=== PATIENT | female | born 1955 | race Caucasian/White ===

== ENCOUNTER 2022-08-28 10:19 | Inpatient (IN) | payer MEDICARE, SELFPAY ==
[2022-08-28] VITALS (29 sets, daily range): BP systolic 106–148; BP diastolic 69–93; PULSE 67–93; RESP 16–20; TEMP 36.6–36.8; O2SAT 89–100; BMI 23.4; BMI 20.9
--- NOTE | 2022-08-28 11:05 | CRLHL7_ITS ---
For Patients: As a result of the Century Cures Act, medical imaging exams and procedure reports are released immediately into your electronic medical record. You may view this report before your referring provider. If you have questions, please contact your health care provider. INDICATION: vomiting, abd pain since New Years Kaitlin TECHNIQUE: CT abdomen and pelvis with 58cc Isovue 370 IV contrast. COMPARISON: None. FINDINGS: The liver is normal in size, shape and attenuation. Gallbladder and biliary tree are normal. The spleen, adrenal glands and pancreas are within normal limits. Kidneys enhance symmetrically. Hyperdense lesions are too small to characterize but likely represent cysts. No hydronephrosis. Mild bladder wall thickening may relate to degree of decompression but could be seen with cystitis. Severely dilated loops of small bowel with wall thickening throughout the upper and left ruben abdomen. Transition point suspected within the right lower abdomen on series 2, image 201. There is fluid and inflammation at the root of the mesentery and moderate volume ascites within the lower abdomen/pelvis. Few areas of questionable small bowel pneumatosis (for example series 4, image 33 and 34). No evidence of portal venous gas. No evidence of free air. Suspect prior hysterectomy. The lower chest is unremarkable. IMPRESSION: Severely dilated loops of small bowel with wall thickening and suspected transition point within the right lower abdomen/pelvis. There is moderate volume ascites and inflammation throughout the mesentery. Findings are highly concerning for small bowel obstruction. Few areas of questionable small bowel pneumatosis (for example series 4, image 33 and 34). Mild bladder wall thickening may relate to degree of decompression but could be seen with cystitis. Findings discussed with Dr. Cervantes at 1:30 p.m. 08/28/2022. Please note that all CT scans at this facility use dose modulation, iterative reconstruction, and/or weight-based dosing when appropriate to reduce radiation dose to as low as reasonably achievable. Dictated by Michelet Bates MD @ 08/28/2022 1:34:03 PM (Electronically Signed)
--- NOTE | 2022-08-28 11:07 | ED_ITS ---
HPI - General Adult General Chief complaint: Nausea/Vomiting Stated complaint: Vomiting, dehydration Time Seen by Provider: 08/28/22 10:59 History of Present Illness HPI narrative: This 67-year-old female comes in reporting abdominal pain with nausea and vomiting for the past 4 5 days. She denies having any fever. She states that there is a constant pain in her abdomen but it gets worse at times. She has not had a prior surgery to her abdomen but did have a hysterectomy. She has not been able to eat much and has not taken any food or drink today. She does arrive with normal vital signs. Prior to this she was in good health. Related Data Home Medications Medication Instructions Recorded Confirmed albuterol sulfate 90 mcg/actuation 2 puff inhalation Q6H PRN 08/28/22 08/28/22 aerosol inhaler anastrozole 1 mg tablet 1 mg PO DAILY 08/28/22 08/28/22 budesonide-formoterol HFA 160 2 puff inhalation Q12H 08/28/22 08/28/22 mcg-4.5 mcg/actuation aerosol inhaler (Symbicort) carvedilol 6.25 mg tablet 6.25 mg PO Q12H 08/28/22 08/28/22 citalopram 10 mg tablet 10 mg PO DAILY 08/28/22 08/28/22 doxycycline hyclate 100 mg tablet mg 08/28/22 levothyroxine 25 mcg tablet 25 mcg PO DAILY 08/28/22 08/28/22 lorazepam 1 mg tablet 1 mg PO Q8H PRN 08/28/22 08/28/22 losartan 50 mg tablet 50 mg PO BID 08/28/22 08/28/22 nystatin 100,000 unit/mL oral 5 ml PO Q6H 08/28/22 08/28/22 suspension prednisone 20 mg tablet 60 mg PO DAILY 08/28/22 08/28/22 trazodone 150 mg tablet 200 mg PO DAILY 08/28/22 08/28/22 Allergies Allergy/AdvReac Type Severity Reaction Status Date / Time codeine Allergy Mild ithcy Verified 08/28/22 10:50 erythromycin Allergy Mild hard on Uncoded 08/28/22 10:50 stomach Review of Systems Status of ROS: Reports: 10 or more systems reviewed and unremarkable except as noted in History and below Narrative: Constitutional: No fevers, no weight gain or loss. Eyes: No discharge. No vision changes. HENT: No congestion, no sore throat, no ear pain. Cardiovascular: No chest pain, no palpitations. Respiratory: No shortness of breath, no wheezes, no cough. Gastrointestinal: Abdominal pain with nausea and vomiting. Genitourinary: No dysuria, no hematuria. Musculoskeletal: Normal range of motion. Skin: No rashes, no pruritis. Neurological: No dizziness, weakness, sensory change, speech change. Endo/Heme/Allergies: No bruising or bleeding. No polydipsia. Pysch: no suicidality, no anxiety, no insomnia. All other systems reviewed and are negative. PFSH PFS Social History Smoking Status: Current some day smoker What tobacco products do you use: cigarettes Smoking packs per day: 0.1 Smoking cigarettes per day: 2.0 Do you use any of these nicotine containing products: None Second hand tobacco smoke exposure: No How often do you have a drink containing alcohol: monthly or less AUDIT-C Alcohol total score: 1 Non-prescribed substance use: denies use service: No Exam Narrative: Exam Narrative: Constitutional: Well-developed, well-nourished, no acute distress. HEENT: Normocephalic, atraumatic. Neck: Normal range of motion. Nontender. Supple. Heart: Regular. No murmurs. Normal rate. Intact distal pulses. Lungs: Clear to auscultation. No chest discomfort. No wheezes, rhonchi, or rales. Abdomen: Decreased bowel sounds. Diffuse tenderness. Distinct rebound tenderness. Genitalia: Deferred. Back: No midline tenderness. Normal range of motion. Extremities: Normal range of motion. No injury. Skin: Intact. No rash. Warm. No erythema or pallor. Neurologic: No altered sensation. No weakness. Alert and oriented. Psychiatric: No suicidality. No anxiety or depression. No insomnia. Nursing notes and vitals signs are reviewed. Const: Vital Signs, click to edit/add: Vital Signs - 24 hr 08/28/22 10:43 08/28/22 11:32 08/28/22 11:33 Temperature 97.8 F Pulse Rate 78 Pulse Rate [Right Pulse Oximeter] 93 Respiratory Rate 20 Blood Pressure 108/77 Blood Pressure [Ri ght Upper Arm] 113/85 Pulse Oximetry 96 92 Oxygen Delivery Me thod Room Air Oxygen Flow Rate 08/28/22 11:34 08/28/22 11:45 08/28/22 12:00 Temperature Pulse Rate 78 70 76 Pulse Rate [Right Pulse Oximeter] Respiratory Rate Blood Pressure Blood Pressure [Ri ght Upper Arm] Pulse Oximetry 97 98 99 Oxygen Delivery Me thod Nasal Cannula Oxygen Flow Rate 2 08/28/22 12:02 08/28/22 12:30 08/28/22 12:32 Temperature Pulse Rate 67 79 77 Pulse Rate [Right Pulse Oximeter] Respiratory Rate Blood Pressure 128/71 148/82 H Blood Pressure [Ri ght Upper Arm] Pulse Oximetry 99 97 100 Oxygen Delivery Me thod Oxygen Flow Rate 08/28/22 12:33 08/28/22 12:45 08/28/22 13:00 Temperature Pulse Rate 75 77 72 Pulse Rate [Right Pulse Oximeter] Respiratory Rate Blood Pressure Blood Pressure [Ri ght Upper Arm] Pulse Oximetry 100 95 95 Oxygen Delivery Me thod Oxygen Flow Rate 08/28/22 13:02 08/28/22 13:15 08/28/22 13:30 Temperature Pulse Rate 74 80 71 Pulse Rate [Right Pulse Oximeter] Respiratory Rate Blood Pressure 115/76 Blood Pressure [Ri ght Upper Arm] Pulse Oximetry 94 96 95 Oxygen Delivery Me thod Oxygen Flow Rate 08/28/22 13:32 08/28/22 13:45 Temperature Pulse Rate 71 76 Pulse Rate [Right Pulse Oximeter] Respiratory Rate Blood Pressure 108/76 Blood Pressure [Ri ght Upper Arm] Pulse Oximetry 95 89 Oxygen Delivery Me thod Oxygen Flow Rate Course Vital Signs Vital signs: Initial Vital Signs Temperature 97.8 F 08/28/22 10:43 Temperature Source Temporal Artery Scan 08/28/22 10:43 Pulse Rate 93 08/28/22 10:43 Respiratory Rate 20 08/28/22 10:43 Blood Pressure 113/85 08/28/22 10:43 Blood Pressure Mean 94 08/28/22 10:43 Blood Pressure Position Sitting 08/28/22 10:43 Pulse Oximetry 96 08/28/22 10:43 Oxygen Delivery Method 08/28/22 10:43 Vital Signs Temperature 97.8 F 08/28/22 10:43 Pulse Rate 93 08/28/22 10:43 Respiratory Rate 20 08/28/22 10:43 Blood Pressure 113/85 08/28/22 10:43 Pulse Oximetry 96 08/28/22 10:43 Oxygen Delivery Method 08/28/22 10:43 Temperature 97.8 F 08/28/22 10:43 Pulse Rate 76 08/28/22 13:45 Respiratory Rate 20 08/28/22 10:43 Blood Pressure 108/76 08/28/22 13:32 Pulse Oximetry 89 08/28/22 13:45 Oxygen Delivery Method 08/28/22 11:34 Oxygen Flow Rate 2 08/28/22 11:34 Medical Decision Making MDM Narrative Medical decision making narrative: This patient comes in with persistent vomiting and abdominal pain over the past 4 5 days. She had an IV placed where she received a L of normal saline, Zofran 4 mg, and Dilaudid 0.2 mg. She received another similar dose of Dilaudid a bit later. CT imaging of the abdomen and pelvis with contrast shows evidence of a small-bowel obstruction. There are no other pertinent findings and lab results are all the normal range. The patient did have a vaginal hysterectomy many years ago but has not had no other abdominal surgery. I did speak with the hospitalist incident response engineer, Dr. Ford who agrees to her admission. IA spoke also with Dr. Hilario Ford in surgery regarding this patient and left a message with the surgeon on-call, Dr. Morton with information regarding this admission. The CT imaging and presentation of the patient a is not suspicious for any complicating factors. Lab Data Labs: Lab Results 08/28/22 08/28/22 Range/Units 11:15 11:15 WBC 6.08 (4.50-11.00) K/uL RBC 4.81 (4.00-5.20) m/uL Hgb 15.2 (12.0-16.0) gm/dL Hct 44.2 (33.0-51.0) % MCV 92 (80-100) fL MCH 32 (26-34) pg MCHC 34 (32-36) gm/dL RDW Coeff of Minna 12.2 (11.5-15.5) % Plt Count 190 (140-440) K/uL Neut % (Auto) 66.8 (42.0-72.0) % Lymph % (Auto) 20.6 (20-44) % [place] % (Auto) 10.7 (0.0-11.0) % Eos % (Auto) 1.2 (0.0-7.0) % Baso % (Auto) 0.5 (0.0-3.0) % Neut # (Auto) 4.07 (1.7-7.0) K/uL Lymph # (Auto) 1.25 (0.90-2.90) K/uL [place] # (Auto) 0.70 (0.00-0.90) K/UL Eos # (Auto) 0.07 (0.00-0.50) K/uL Baso # (Auto) 0.03 (0.00-0.30) K/uL Sodium 135 (135-149) mmol/L Potassium 3.8 (3.6-5.1) mmol/L Chloride 100 (96-114) mmol/L Carbon Dioxide 27 (20-32) mmol/L BUN 15 (7-30) mg/dL Creatinine 0.9 (0.5-1.5) mg/dL Estimated Creat Clear 39.75 Estimated GFR 71 ml/min Glucose 114 (60-115) mg/dL Calcium 8.5 (8.4-10.6) mg/dL Total Bilirubin 2.8 H (0.1-1.5) mg/dL Direct Bilirubin 0.3 (0.0-0.5) mg/dL AST 45 H (12-35) U/L ALT 38 H (4-35) U/L Alkaline Phosphatase 40 (40-150) U/L Total Protein 6.4 (6.0-8.3) g/dL Albumin 3.9 (3.3-5.0) g/dL Lipase 17 L (23-300) U/L Imaging Data CT scan - abdomen: Radiologist's impression: IMPRESSION: Severely dilated loops of small bowel with wall thickening and suspected transition point within the right lower abdomen/pelvis. There is moderate volume ascites and inflammation throughout the mesentery. Findings are highly concerning for small bowel obstruction. Few areas of questionable small bowel pneumatosis (for example series 4, image 33 and 34). Mild bladder wall thickening may relate to degree of decompression but could be seen with cystitis. Discharge Plan Discharge Clinical Impression: Small bowel obstruction Patient Disposition: Admitted As Inpatient Condition: Unchanged Prescriptions: No Action albuterol sulfate 90 mcg/actuation HFA aerosol inhaler 2 puff INHALATION Q6H PRN Label Comments: INHALE TWO PUFFS BY MOUTH EVERY FOUR HOURS NEEDED FOR WHEEZING anastrozole 1 mg tablet 1 mg PO DAILY Label Comments: TAKE ONE TABLET BY MOUTH ONE TIME DAILY budesonide-formoterol [Symbicort] 160-4.5 mcg/actuation HFA aerosol inhaler 2 puff INHALATION Q12H Label Comments: INHALE TWO PUFFS BY MOUTH TWICE DAILY carvedilol 6.25 mg tablet 6.25 mg PO Q12H Label Comments: TAKE ONE TABLET BY MOUTH TWICE A DAY WITH MEALS citalopram 10 mg tablet 10 mg PO DAILY Label Comments: TAKE ONE TABLET BY MOUTH EVERY DAY IN THE MORNING. levothyroxine 25 mcg tablet 25 mcg PO DAILY Label Comments: TAKE ONE TABLET BY MOUTH ONE TIME DAILY lorazepam 1 mg tablet 1 mg PO Q8H PRN Label Comments: Take 1 Tablet (1 mg) by mouth 3 times daily if needed for Anxiety. doxycycline hyclate 100 mg tablet Label Comments: TAKE ONE TABLET BY MOUTH TWICE DAILY FOR 5 DAYS losartan 50 mg tablet 50 mg PO BID Label Comments: TAKE ONE TABLET BY MOUTH TWICE DAILY nystatin 100,000 unit/mL suspension 5 ml PO Q6H Label Comments: Swish and spit 5 mL by mouth four times daily For thrush prednisone 20 mg tablet 60 mg PO DAILY Label Comments: Take 3 Tablets by mouth once daily with a meal for 4 days, THEN 2 Tablets for 4 days, THEN 1 Tablet daily for 4 days. trazodone 150 mg tablet 200 mg PO DAILY Label Comments: Take 1.5 Tablets by mouth once daily at bedtime. Follow Up/Referrals: Suzy Stewart [Primary Care Provider] -
[2022-08-28 11:26] LABS: Basophils Absolute Auto 0.03 K/uL (0.00-0.30); Basophils Percent Auto 0.5 % (0.0-3.0); Eosinophils Absolute Auto 0.07 K/uL (0.00-0.50); Eosinophils Percent Auto 1.2 % (0.0-7.0); Hematocrit 44.2 % (33.0-51.0); Hemoglobin* 15.2 gm/dL (12.0-16.0); Immature Granulocytes Abs Auto 0.01 K/uL (0.00-0.30); Immature Granulocytes Pct Auto 0.2 %; Lymphocytes Absolute Auto 1.25 K/uL (0.90-2.90); Lymphocytes Percent Auto 20.6 % (20-44); Mean Corpuscular HGB Conc 34 gm/dL (32-36); Mean Corpuscular Hemoglobin 32 pg (26-34); Mean Corpuscular Volume 92 fL (80-100); Monocytes Percent Auto 10.7 % (0.0-11.0); Neutrophils Absolute Auto 4.07 K/uL (1.7-7.0); Neutrophils Percent Auto 66.8 % (42.0-72.0); Platelet Count* 190 K/uL (140-440); RDW Coefficient of Variation % 12.2 % (11.5-15.5); Red Blood Count 4.81 m/uL (4.00-5.20); White Blood Count* 6.08 K/uL (4.50-11.00)
[2022-08-28] MEDS: 0.9 % SODIUM CHLORIDE 1000 ml 1,000 ML IV (11:27)
[2022-08-28] MEDS: ONDANSETRON 2 MG/ML inj 4 MG IVP (11:27)
[2022-08-28] MEDS: HYDROmorphone 0.5 mg/0.5 ml inj 0.2 MG IVP ×2 (11:27→14:03)
[2022-08-28 11:35] LABS: Slide Review Reflex No
[2022-08-28 11:41] LABS: Albumin* 3.9 g/dL (3.3-5.0); Chloride* 100 mmol/L (96-114)
[2022-08-28 11:42] LABS: Potassium* 3.8 mmol/L (3.6-5.1); Sodium* 135 mmol/L (135-149)
[2022-08-28 11:44] LABS: Aspartate Amino Transferase* 45 U/L (12-35); Bilirubin Direct* 0.3 mg/dL (0.0-0.5); Bilirubin Total* 2.8 mg/dL (0.1-1.5); Blood Urea Nitrogen* 15 mg/dL (7-30); Carbon Dioxide* 27 mmol/L (20-32); Creatinine* 0.9 mg/dL (0.5-1.5); Est. Creatinine Clearance* 39.75; Estimated Glomerular Filt Rate 71 ml/min; Total Protein* 6.4 g/dL (6.0-8.3)
[2022-08-28 11:45] LABS: Alanine Aminotransferase* 38 U/L (4-35); Alkaline Phosphatase* 40 U/L (40-150); Calcium* 8.5 mg/dL (8.4-10.6); Glucose* 114 mg/dL (60-115); Lipase* 17 U/L (23-300)
--- NOTE | 2022-08-28 12:33 | ED.NURSE ---
Pt to and back from radiology
[2022-08-28 14:40] LABS: SARS PCR* Negative SARS-CoV-2 (Negative)
--- NOTE | 2022-08-28 15:05 | CRLHL7_ITS ---
For Patients: As a result of the Century Cures Act, medical imaging exams and procedure reports are released immediately into your electronic medical record. You may view this report before your referring provider. If you have questions, please contact your health care provider. INDICATION: Cough TECHNIQUE: Two view chest. FINDINGS: The lungs are clear. The heart, mediastinum and pulmonary vessels are of normal size. There is no evidence of pleural disease. Clips over the left chest. Mastectomy change axillary clips. IMPRESSION: Negative chest. Dictated by Elsa Wan MD @ 08/28/2022 5:50:46 PM (Electronically Signed)
--- NOTE | 2022-08-28 15:07 | P.GSCN_ITS ---
History of Present Illness Consult details Date Seen: 08/28/22 Consult date: 08/28/22 Narrative: 67-year-old female presented to emergency room with abdominal pain and I was asked by Dr. San to see her in consultation. Patient states that she developed abdominal pain on . She had multiple episodes of vomiting. Her vomiting continued on . Her abdominal pain also continued and patient thought that her pain was mostly due to coughing. She occasionally passes gas but her last bowel movement was 5 days ago. Patient states that her abdominal pain is described as aching and worse with coughing. She is not sure what makes the pain better or worse. I reviewed patient's labs and CT. Patient's laboratory values showed elevated indirect bilirubin and minimally elevated AST and ALT. Her albumin was normal. Her WBC was normal. An abdominal CT was obtained that showed moderate amount of ascites with dilated loops of small intestine. The wall of the small intestine was thickened and there were 2 images described by Radiology of questionable pneumatosis. There is no evidence of free air. Patient has had chronic cough and was treated with antibiotics in the member. She was recently seen again and the antibiotic course was prescribed but she was not able to start her antibiotics due to vomiting. 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 Smoking Status: Current some day smoker What tobacco products do you use: cigarettes Smoking packs per day: 0.1 Smoking cigarettes per day: 2.0 Do you use any of these nicotine containing products: None Second hand tobacco smoke exposure: No How often do you have a drink containing alcohol: monthly or less AUDIT-C Alcohol total score: 1 Non-prescribed substance use: denies use service: No Meds Home Medications and Allergies Home Medications Medication Instructions Recorded Confirmed Type albuterol sulfate 90 mcg/actuation 2 puff inhalation Q4H PRN 08/28/22 08/28/22 History aerosol inhaler anastrozole 1 mg tablet 1 mg PO DAILY 08/28/22 08/28/22 History aspirin 81 mg tablet,delayed 81 mg PO DAILY 08/28/22 08/28/22 History release (Adult Aspirin Regimen) budesonide-formoterol HFA 160 2 puff inhalation BID 08/28/22 08/28/22 History mcg-4.5 mcg/actuation aerosol inhaler (Symbicort) calcium carbonate 600 mg-vitamin 1 cap PO BID 08/28/22 08/28/22 History D3 5 mcg (200 unit) capsule (Calcium 600 + D(3)) carvedilol 6.25 mg tablet 6.25 mg PO BID 08/28/22 08/28/22 History doxycycline hyclate 100 mg tablet 100 mg PO BID 08/28/22 08/28/22 History ipratropium 0.5 mg-albuterol 3 mg 3 ml inhalation Q6H PRN 08/28/22 08/28/22 History (2.5 mg base)/3 mL nebulization soln levothyroxine 25 mcg tablet 25 mcg PO DAILY 08/28/22 08/28/22 History lorazepam 1 mg tablet 1 mg PO TID PRN 08/28/22 08/28/22 History losartan 50 mg tablet 50 mg PO BID 08/28/22 08/28/22 History nystatin 100,000 unit/mL oral 5 ml PO QID 08/28/22 08/28/22 History suspension omeprazole 20 mg capsule,delayed 20 mg PO DAILY 08/28/22 08/28/22 History release oxycodone-acetaminophen 5 mg-325 1 tab PO Q4H PRN 08/28/22 08/28/22 History mg tablet prednisone 20 mg tablet 60 mg PO DAILY 08/28/22 08/28/22 History trazodone 150 mg tablet 150 mg PO HS PRN 08/28/22 08/28/22 History Allergies Allergy/AdvReac Type Severity Reaction Status Date / Time codeine Allergy Mild ithcy Verified 08/28/22 10:50 erythromycin base Allergy Mild Gastrointestinal Verified 08/28/22 14:51 Upset Exam Narrative: Exam Narrative: General appearance: Alert, cooperative, and in no distress Pulmonary: Chest symmetric, Mild expiratory wheezing on the left. Cardiovascular Heart: Regular rate and rhythm, S1, S2, no murmurs/rubs/gallops Gastrointestinal Abdominal: soft, not distended, patient has discomfort to palpation in epigastrium and right lower quadrant, she has a point tenderness to palpation in the left lower quadrant with no peritoneal signs. Skin: Normal skin color, texture, and turgor. No rashes or lesions. Psychiatric: Alert, cooperative, normal affect. Const: Vital Signs, click to edit/add: Vital Signs - 24 hr 08/28/22 10:43 08/28/22 11:32 08/28/22 11:33 Temperature 97.8 F Pulse Rate 78 Pulse Rate [Right Pulse Oximeter] 93 Respiratory Rate 20 Blood Pressure 108/77 Blood Pressure [Ri ght Upper Arm] 113/85 Pulse Oximetry 96 92 Oxygen Delivery Me thod Room Air Oxygen Flow Rate 08/28/22 11:34 08/28/22 11:45 08/28/22 12:00 Temperature Pulse Rate 78 70 76 Pulse Rate [Right Pulse Oximeter] Respiratory Rate Blood Pressure Blood Pressure [Ri ght Upper Arm] Pulse Oximetry 97 98 99 Oxygen Delivery Me thod Nasal Cannula Oxygen Flow Rate 2 08/28/22 12:02 08/28/22 12:30 08/28/22 12:32 Temperature Pulse Rate 67 79 77 Pulse Rate [Right Pulse Oximeter] Respiratory Rate Blood Pressure 128/71 148/82 H Blood Pressure [Ri ght Upper Arm] Pulse Oximetry 99 97 100 Oxygen Delivery Me thod Oxygen Flow Rate 08/28/22 12:33 08/28/22 12:45 08/28/22 13:00 Temperature Pulse Rate 75 77 72 Pulse Rate [Right Pulse Oximeter] Respiratory Rate Blood Pressure Blood Pressure [Ri ght Upper Arm] Pulse Oximetry 100 95 95 Oxygen Delivery Me thod Oxygen Flow Rate 08/28/22 13:02 08/28/22 13:15 08/28/22 13:30 Temperature Pulse Rate 74 80 71 Pulse Rate [Right Pulse Oximeter] Respiratory Rate Blood Pressure 115/76 Blood Pressure [Ri ght Upper Arm] Pulse Oximetry 94 96 95 Oxygen Delivery Me thod Oxygen Flow Rate 08/28/22 13:32 01/04/23 13:45 Temperature Pulse Rate 71 76 Pulse Rate [Right Pulse Oximeter] Respiratory Rate Blood Pressure 108/76 Blood Pressure [Ri ght Upper Arm] Pulse Oximetry 95 89 Oxygen Delivery Me thod Oxygen Flow Rate Results Labs Labs: Abnormal lab results 08/28/22 Range/Units 11:15 Total Bilirubin 2.8 H (0.1-1.5) mg/dL AST 45 H (12-35) U/L ALT 38 H (4-35) U/L Lipase 17 L (23-300) U/L Diabetes panel 08/28/22 Range/Units 11:15 Sodium 135 (135-149) mmol/L Potassium 3.8 (3.6-5.1) mmol/L Chloride 100 (96-114) mmol/L Carbon Dioxide 27 (20-32) mmol/L BUN 15 (7-30) mg/dL Creatinine 0.9 (0.5-1.5) mg/dL Glucose 114 (60-115) mg/dL Calcium 8.5 (8.4-10.6) mg/dL AST 45 H (12-35) U/L ALT 38 H (4-35) U/L Alkaline Phosphatase 40 (40-150) U/L Total Protein 6.4 (6.0-8.3) g/dL Albumin 3.9 (3.3-5.0) g/dL Calcium panel 08/28/22 Range/Units 11:15 Calcium 8.5 (8.4-10.6) mg/dL Albumin 3.9 (3.3-5.0) g/dL Pituitary panel 08/28/22 Range/Units 11:15 Sodium 135 (135-149) mmol/L Potassium 3.8 (3.6-5.1) mmol/L Chloride 100 (96-114) mmol/L Carbon Dioxide 27 (20-32) mmol/L BUN 15 (7-30) mg/dL Creatinine 0.9 (0.5-1.5) mg/dL Glucose 114 (60-115) mg/dL Calcium 8.5 (8.4-10.6) mg/dL Adrenal panel 08/28/22 Range/Units 11:15 Sodium 135 (135-149) mmol/L Potassium 3.8 (3.6-5.1) mmol/L Chloride 100 (96-114) mmol/L Carbon Dioxide 27 (20-32) mmol/L BUN 15 (7-30) mg/dL Creatinine 0.9 (0.5-1.5) mg/dL Glucose 114 (60-115) mg/dL Calcium 8.5 (8.4-10.6) mg/dL Total Bilirubin 2.8 H (0.1-1.5) mg/dL AST 45 H (12-35) U/L ALT 38 H (4-35) U/L Alkaline Phosphatase 40 (40-150) U/L Total Protein 6.4 (6.0-8.3) g/dL Albumin 3.9 (3.3-5.0) g/dL All other labs normal. Assessment and Plan Assessment and plan (1) Small bowel obstruction: Status: Acute Plan 67-year-old female presents with small-bowel obstruction Of unknown etiology. I discussed with the patient her laboratory and imaging findings. Patient's WBC remains normal with no left shift despite of her illness being ongoing for the last [address] shows dilated loops of small intestine with small bowel wall thickening and ascites that could be due to a viral illness versus small-bowel obstruction. Patient has questionable small bowel pneumatosis in 1 area but her abdominal exam is benign. I think it would be reasonable to obtain a CRP as well as lactate and follow the trend. Patient will be admitted to the hospitalist. Patient should remain NPO with IV fluids. We should repeat her labs tomorrow to see progression of her transaminitis. Patient also had expiratory wheezing on her clinical exam. I recommended to obtain a chest x-ray and give the patient a nebulizer. I will discuss this patient with Dr. Martinez, surgeon on-call.
[2022-08-28] MEDS: ALBUTEROL SULFATE 2.5 MG/3 ML VIAL.NEB NEB (15:12)
[2022-08-28 15:47] LABS: C Reactive Protein* 0.5 mg/dL (0.5-1.0)
[2022-08-28 16:09] LABS: HCO3 VBG 26 mmol/L (21-28); PCO2 VBG 44 mmHG (40-50); PO2 VBG 49.5 mmHG (25-47); pH VBG 7.373 (7.32-7.43)
[2022-08-28] MEDS: KETOROLAC 30 MG/ML inj IVP ×2 (16:18→22:00)
[2022-08-28] MEDS: PANTOPRAZOLE SODIUM 40 MG INJ IVP (16:19)
--- NOTE | 2022-08-28 16:28 | PM.EN ---
Chart Event Note Chart Event Note: Dr. Redding saw this patient this afternoon. Please see her consult note for details. There was some concern about pneumatosis on CT scan. I did review the CT scan myself and with the radiologist. The air does appear to be anti dependent and the patient's lactate, CRP and white count are all within normal limits. She is also nontoxic appearing via vital signs. Therefore, we will hold off on any surgical intervention. I have discussed the patient with the hospitalist and if there is concern for deterioration clinically then I would plan on exploration, however for now we will start with observation. I will see the patient in the morning otherwise.
--- NOTE | 2022-08-28 16:37 | P.IMHP_ITS ---
Hospitalist- H&P: HPI History of Present Illness Date Seen: 08/28/22 Chief complaint: Vomiting, dehydration Narrative: ADMISSION HISTORY AND PHYSICAL - HOSPITALIST Chief Complaint: Vomiting, nausea, abdominal pain since 08/24 HPI: Fabiana is a 67-year-old who presents after approximately 4 days of nausea and vomiting. She states she woke up on the morning of 08/24 and that something was not right. She vomited into her hand which is extremely unusual for her. She tried amending her diet but the pain and persistent nausea and vomiting did not stop. No known sick contacts. She has complex medical history that includes breast cancer with chemo induced heart failure, COPD, tobacco dependence, depression. She denies fever or cough. She denies travel. In the ED: -She received 1000 mL of normal saline, hydromorphone and ondansetron I've updated the PFSH, medications and allergies in the [facility] tabs. INVESTIGATIONS: LABS/MICRO/ECG/IMAGING Her abdomen pelvis CT showed: -Severely dilated loops of small bowel with wall thickening and a suspected transition point within the right lower abdomen/pelvis. Ascites and inflammation throughout. There was a questionable small areas of bowel pneumatosis, however the general surgeon discuss this with Radiology and are going to continue conservative care. -bladder wall thickening was also seen -white count 6.08, hemoglobin 15.2, normal platelets 190 -pH 7.37 otherwise normal VBG -lactate, after fluids is 1.0, CRP 0.5 -Normal electrolytes and renal function -Total bili 2.8 -AST and ALT are mildly elevated 45 and 38 respectively -lipase normal 06/15 -ECHO Indication for study: Chronic Systolic Heart Failure (Hx Breast Cancer with chemo induced cardiomyopathy) Cardiac Rhythm: Regular.Study quality: Fair. ? Final Impressions: 1. Normal LV size, normal wall thickness, low normal global systolic function with an estimated EF of ~ 55%. 2. Right ventricular cavity size is normal, global systolic RV function is normal. PCP VISIT Has chronic systolic heart failure. Taking carvedilol 6.25 mg twice daily and losartan 50 mg twice daily. Had echocardiogram 05/31/22, ejection fraction of 55%. Has hypothyroidism. Taking levothyroxine 25 mcg daily. Has h/o breast cancer, followed at cancer center. Taking anastrozole 1 mg daily. Has osteoporosis. Receiving Zometa every 6 months. Last dose 04/25/22 per oncology. Has h/o depression and anxiety. Taking citalopram 10 mg daily. Taking trazodone 150 mg daily for sleep issues. She is weaning down on these medications and is feeling well. Has COPD. Taking symbicort 160-4.5 two puffs twice daily, duonebs, albuterol. Has increased her use of albuterol and nebulizer treatments with current illness symptoms. Taking oxycodone-acetaminophen 5-325 mg as needed. REVIEW OF SYSTEMS: 12-point ROS completed with patient and negative unless otherwise stated in HPI or below. PHYSICAL EXAM: CODE STATUS: FULL CODE CONSTITUTIONAL: Conversive, good historian. A/O. Knows setting and context. VITAL SIGNS: see record. HEENT: Normocephalic, atraumatic. PERRL, EOMI, conjunctivae pink, no scleral icterus. Ears and nose externally normal. Pharynx normal. NECK: No JVD. No carotid bruit, no thyromegaly, no adenopathy. CHEST: Clear to auscultation bilaterally HEART: S1 and S2 normal. No harsh murmurs. Edema MUSCULOSKELETAL: No gross joint deformity or swelling. ABDOMEN: soft. tender just proximal of umbilicus. not distended. hypoactive bowel sounds NEURO: Cranial nerves intact. Grossly intact. No asymmetric findings. SKIN: No rashes, petechiae, concerning changes PSYCHIATRIC: Euthymic. ADMIT TO MEDSURG: FLOOR CARE DVT: SCDS GI: IV PPI Time spent: 70 minutes examining patient, conferring with family and patient, care staff, developing care plan PFSH PFSH Medical History (Updated 08/28/22 @ 17:36 by Beulah Ford MD) COPD (chronic obstructive pulmonary disease) Depression [place] Hypothyroid Infiltrating ductal carcinoma of breast Osteoporosis Systolic CHF with reduced left ventricular function, NYHA class 3 Surgical History (Updated 08/28/22 @ 17:21 by Beulah Ford MD) H/O toe surgery H/O: hysterectomy History of lumpectomy Hx of brain surgery S/P tonsillectomy Social History (Updated 08/28/22 @ 17:23 by Beulah Ford MD) Narrative: 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 Lives with alex Arita. She was a heavy smoker until 2018. Quit during breast cancer treatment. She smokes 1-4 cigarettes a day. Juan J does not know this! Had 2 boys. 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 She denies any drug use or consistent heavy alcohol use. Smoking Status: Current some day smoker What tobacco products do you use: cigarettes Smoking packs per day: 0.1 Smoking cigarettes per day: 2.0 Do you use any of these nicotine containing products: None Second hand tobacco smoke exposure: No How often do you have a drink containing alcohol: monthly or less AUDIT-C Alcohol total score: 1 Non-prescribed substance use: denies use service: No Meds Home Medications and Allergies Home Medications Medication Instructions Recorded Confirmed Type albuterol sulfate 90 mcg/actuation 2 puff inhalation Q4H PRN 08/28/22 08/28/22 History aerosol inhaler anastrozole 1 mg tablet 1 mg PO DAILY 08/28/22 08/28/22 History aspirin 81 mg tablet,delayed 81 mg PO DAILY 08/28/22 08/28/22 History release (Adult Aspirin Regimen) budesonide-formoterol HFA 160 2 puff inhalation BID 08/28/22 08/28/22 History mcg-4.5 mcg/actuation aerosol inhaler (Symbicort) calcium carbonate 600 mg-vitamin 1 cap PO BID 08/28/22 08/28/22 History D3 5 mcg (200 unit) capsule (Calcium 600 + D(3)) carvedilol 6.25 mg tablet 6.25 mg PO BID 08/28/22 08/28/22 History doxycycline hyclate 100 mg tablet 100 mg PO BID 08/28/22 08/28/22 History ipratropium 0.5 mg-albuterol 3 mg 3 ml inhalation Q6H PRN 08/28/22 08/28/22 History (2.5 mg base)/3 mL nebulization soln levothyroxine 25 mcg tablet 25 mcg PO DAILY 08/28/22 08/28/22 History lorazepam 1 mg tablet 1 mg PO TID PRN 08/28/22 08/28/22 History losartan 50 mg tablet 50 mg PO BID 08/28/22 08/28/22 History nystatin 100,000 unit/mL oral 5 ml PO QID 08/28/22 08/28/22 History suspension omeprazole 20 mg capsule,delayed 20 mg PO DAILY 08/28/22 08/28/22 History release oxycodone-acetaminophen 5 mg-325 1 tab PO Q4H PRN 08/28/22 08/28/22 History mg tablet prednisone 20 mg tablet 60 mg PO DAILY 08/28/22 08/28/22 History trazodone 150 mg tablet 150 mg PO HS PRN 08/28/22 08/28/22 History Allergies Allergy/AdvReac Type Severity Reaction Status Date / Time codeine Allergy Mild ithcy Verified 08/28/22 10:50 erythromycin base Allergy Mild Gastrointestinal Verified 08/28/22 14:51 Upset Exam Const: Vital Signs, click to edit/add: Vital Signs - 24 hr 08/28/22 10:43 08/28/22 11:32 08/28/22 11:33 Temperature 97.8 F Pulse Rate 78 Pulse Rate [Right Pulse Oximeter] 93 Respiratory Rate 20 Blood Pressure 108/77 Blood Pressure [Ri ght Upper Arm] 113/85 Pulse Oximetry 96 92 Oxygen Delivery Me thod Room Air Oxygen Flow Rate 08/28/22 11:34 08/28/22 11:45 08/28/22 12:00 Temperature Pulse Rate 78 70 76 Pulse Rate [Right Pulse Oximeter] Respiratory Rate Blood Pressure Blood Pressure [Ri ght Upper Arm] Pulse Oximetry 97 98 99 Oxygen Delivery Me thod Nasal Cannula Oxygen Flow Rate 2 08/28/22 12:02 08/28/22 12:30 08/28/22 12:32 Temperature Pulse Rate 67 79 77 Pulse Rate [Right Pulse Oximeter] Respiratory Rate Blood Pressure 128/71 148/82 H Blood Pressure [Ri ght Upper Arm] Pulse Oximetry 99 97 100 Oxygen Delivery Me thod Oxygen Flow Rate 08/28/22 12:33 08/28/22 12:45 08/28/22 13:00 Temperature Pulse Rate 75 77 72 Pulse Rate [Right Pulse Oximeter] Respiratory Rate Blood Pressure Blood Pressure [Ri ght Upper Arm] Pulse Oximetry 100 95 95 Oxygen Delivery Me thod Oxygen Flow Rate 08/28/22 13:02 08/28/22 13:15 08/28/22 13:30 Temperature Pulse Rate 74 80 71 Pulse Rate [Right Pulse Oximeter] Respiratory Rate Blood Pressure 115/76 Blood Pressure [Ri ght Upper Arm] Pulse Oximetry 94 96 95 Oxygen Delivery Me thod Oxygen Flow Rate 08/28/22 13:32 08/28/22 13:45 08/28/22 14:02 Temperature Pulse Rate 71 76 Pulse Rate [Right Pulse Oximeter] Respiratory Rate Blood Pressure 108/76 121/77 Blood Pressure [Ri ght Upper Arm] Pulse Oximetry 95 89 Oxygen Delivery Me thod Oxygen Flow Rate 08/28/22 14:04 08/28/22 14:15 08/28/22 14:30 Temperature Pulse Rate 76 77 72 Pulse Rate [Right Pulse Oximeter] Respiratory Rate Blood Pressure Blood Pressure [Ri ght Upper Arm] Pulse Oximetry 93 89 96 Oxygen Delivery Me thod Oxygen Flow Rate 08/28/22 14:32 08/28/22 14:45 08/28/22 15:00 Temperature Pulse Rate 79 70 78 Pulse Rate [Right Pulse Oximeter] Respiratory Rate Blood Pressure 106/79 Blood Pressure [Ri ght Upper Arm] Pulse Oximetry 95 96 97 Oxygen Delivery Me thod Oxygen Flow Rate 08/28/22 15:02 08/28/22 15:15 Temperature Pulse Rate 76 71 Pulse Rate [Right Pulse Oximeter] Respiratory Rate Blood Pressure 121/93 H Blood Pressure [Ri ght Upper Arm] Pulse Oximetry 96 97 Oxygen Delivery Me thod Oxygen Flow Rate Hospitalist - H&P: Result Labs Labs: Short CBC 08/28/22 Range/Units 11:15 WBC 6.08 (4.50-11.00) K/uL Hgb 15.2 (12.0-16.0) gm/dL Hct 44.2 (33.0-51.0) % Plt Count 190 (140-440) K/uL BMP 08/28/22 11:15 Sodium 135 Potassium 3.8 Chloride 100 Carbon Dioxide 27 BUN 15 Creatinine 0.9 Glucose 114 Calcium 8.5 Liver Function 08/28/22 Range/Units 11:15 Total Bilirubin 2.8 H (0.1-1.5) mg/dL Direct Bilirubin 0.3 (0.0-0.5) mg/dL AST 45 H (12-35) U/L ALT 38 H (4-35) U/L Alkaline Phosphatase 40 (40-150) U/L Albumin 3.9 (3.3-5.0) g/dL Assessment and Plan Assessment and plan (1) Small bowel obstruction: Problem comment: Discussed this case with Dr. Meraz - we are proceeding with conservative care. She currently does not have an NG tube. She is getting IV fluids, IV analgesics and antiemetics. Serial exams and possible Gastrografin study upcoming. Lact ate is normal. Not tachycardic. Resting. Status: Acute (2) Systolic CHF with reduced left ventricular function, NYHA class 3: Problem comment: -Taking carvedilol 6.25 mg twice daily and losartan 50 mg twice daily. Had echocardiogram 05/31/22, ejection fraction of 55%. -These are on hold while she is NPO, restart when possible -no obvious exacerbation present. When she came up from the ED she is on 2 L secondary to opioids. Chronic Systolic Heart Failure Stage C, NYHA II Etiology: Suspect toxic/chemo, may have XRT component, No CAD on CT coronary angiography LVEF: 55% in 06/15 LVEF: 54% in Mar LVEF ~40% with GLS -17% in Nov 45-50% by TTE Aug with GLS -18% GDMT Beta-caio: Coreg 6.25 mg bid based on HR ~50 ACEi/ARB/ARNI: Losartan 50 mg bid SGLT2i: Not indicated with present LVEF- repeat echo Aldosterone antagonist: Not indicated with present LVEF Volume status: Euvolemic Diuretic regimen: Not needed Device therapy: Not indicated with present LVEF Ischemic assessment: CT coronary angiography without evidence of CAD Aug Status: Acute (3) Hypothyroid: Problem comment: Holding current levothyroxine while she is NPO Status: Acute (4) COPD (chronic obstructive pulmonary disease): Problem comment: Taking symbicort 160-4.5 two puffs twice daily, duonebs, albuterol. Status: Acute (5) Depression: Problem comment: Holding meds for now Status: Acute (6) [place] Problem comment: wears aides Status: Acute
[2022-08-28] MEDS: LORazepam 2 MG/ML inj IVP (16:39)
[2022-08-28] MEDS: LACTATED RINGERS 1000 ML 1,000 ML 125 ML IV (16:42)
[2022-08-28 17:40] LABS: Gamma Glutamyl Transpeptidase* 34 U/L (8-55)
--- NOTE | 2022-08-28 18:08 | PC.NURSE ---
shift note: pt to rm 259 via wc from ED @ 1520. Pt has dim LS with upper airway congestion. pt has wet unproductive cough. Pt rating abd pain 0/10 on initial arrival to unit but as pt moving around more her pain wsa 9/10. pt received toradol and ativan IV. Pt using 2L pnc O2 with sats 96%. Iv patent to rt AC.
[2022-08-28 19:03] LABS: NT Pro B Type NatriureticPept* 140 pg/mL
[2022-08-28 20:18] LABS: Appearance Urine Cloudy (Clear); Bilirubin Urine 2+ (Negative); Blood Urine Negative (Negative); Color Urine Amber (Yellow); Glucose Urine Negative (Negative); Ketones Urine 2+ (Negative)
[2022-08-28 20:19] LABS: Leukocyte Esterase Urine Negative (Negative); Nitrite Urine Negative (Negative); Protein Urine Trace (Negative); pH Urine 5.5 (5.0-8.5)
[2022-08-28 20:44] LABS: Calcium Oxalate Crystals Urine Moderate; RBC Urine 0-2 (0-2); Squamous Epithelial Cell Urine Moderate (None-Few)
[2022-08-28] MEDS: BUDESONIDE 0.5 MG/2ML NEB NEB (21:19)
[2022-08-29] MEDS: LACTATED RINGERS 1000 ML 1,000 ML 75 ML IV (00:58)
[2022-08-29 03:00] VITALS: BP 119/69; PULSE 79; RESP 16; TEMP 36.5; O2SAT 97
--- NOTE | 2022-08-29 05:30 | PC.NURSE ---
Shift note: Pt has LLQ tenderness and complained occasionally of abd pain. Tolerating well with A1 for ambulation. No N/V/D noted. Oxygen was decrease to 1L and pt consistently maintained O2 level above 96%.
[2022-08-29 07:00] VITALS: BP 130/69; PULSE 72; RESP 18; TEMP 36.3; O2SAT 93
[2022-08-29 07:10] LABS: Hematocrit 37.4 % (33.0-51.0); Hemoglobin* 12.7 gm/dL (12.0-16.0); Mean Corpuscular HGB Conc 34 gm/dL (32-36); Mean Corpuscular Hemoglobin 32 pg (26-34); Mean Corpuscular Volume 95 fL (80-100); Platelet Count* 125 K/uL (140-440); Red Blood Count 3.95 m/uL (4.00-5.20); White Blood Count* 4.44 K/uL (4.50-11.00)
[2022-08-29 07:11] LABS: Slide Review Reflex No
[2022-08-29 07:22] LABS: INR 0.98 (0.91-1.10); Prothrombin Time 13.6 Seconds
[2022-08-29 07:27] LABS: Ionized Calcium* 1.03 mmol/L (1.11-1.30); Lactate* 0.7 mmol/L (0.5-1.9)
[2022-08-29 07:33] LABS: Albumin* 2.9 g/dL (3.3-5.0); Chloride* 107 mmol/L (96-114)
[2022-08-29 07:34] LABS: Sodium* 134 mmol/L (135-149)
[2022-08-29 07:36] LABS: Alkaline Phosphatase* 34 U/L (40-150); Aspartate Amino Transferase* 51 U/L (12-35); Bilirubin Total* 1.6 mg/dL (0.1-1.5); Blood Urea Nitrogen* 14 mg/dL (7-30); Carbon Dioxide* 20 mmol/L (20-32); Creatinine* 0.8 mg/dL (0.5-1.5); Est. Creatinine Clearance* 45.78; Estimated Glomerular Filt Rate 81 ml/min; Gamma Glutamyl Transpeptidase* 31 U/L (8-55); Glucose* 65 mg/dL (60-115); Lipase* 13 U/L (23-300)
[2022-08-29 07:37] LABS: Alanine Aminotransferase* 28 U/L (4-35); Calcium* 7.4 mg/dL (8.4-10.6); Magnesium* 1.9 mg/dL (1.5-2.6)
[2022-08-29 07:39] LABS: C Reactive Protein* 0.7 mg/dL (0.5-1.0)
[2022-08-29 07:53] LABS: NT Pro B Type NatriureticPept* 222 pg/mL
[2022-08-29] MEDS: BUDESONIDE 0.5 MG/2ML NEB NEB ×2 (08:27→21:14)
[2022-08-29] MEDS: LACTATED RINGERS 1000 ML 1,000 ML 125 ML IV ×2 (08:28→16:12)
--- NOTE | 2022-08-29 09:00 | PM.GSPN ---
Subjective Subjective Date Seen: 08/29/22 Interval history: Guadalupe is stable today. She continues to have some abdominal pain. She would like to have something more to drink and is anxious to go home. She states she is passing a small amount of gas but has not had a bowel movement since August 25 which is 4 days ago. No further nausea. Exam Narrative: Exam Narrative: General: Alert, no distress Respiratory: Breathing is nonlabored on room air. She does have a cough CV: Regular rate Abdomen: Very mildly distended. Infraumbilical scar from tubal ligation noted. No other scars. Abdomen is soft and tender just below the umbilicus in the midline. No rebound guarding or peritoneal signs Const: Vital Signs, click to edit/add: Vital Signs - 24 hr 08/28/22 10:43 08/28/22 11:32 08/28/22 11:33 Temperature 97.8 F Pulse Rate 78 Pulse Rate [Right Brachial] Pulse Rate [Right Pulse Oximeter] 93 Respiratory Rate 20 Blood Pressure 108/77 Blood Pressure [Ri ght Arm] Blood Pressure [Ri ght Upper Arm] 113/85 Pulse Oximetry 96 92 Oxygen Delivery Me thod Room Air Oxygen Flow Rate 08/28/22 11:34 08/28/22 11:45 08/28/22 12:00 Temperature Pulse Rate 78 70 76 Pulse Rate [Right Brachial] Pulse Rate [Right Pulse Oximeter] Respiratory Rate Blood Pressure Blood Pressure [Ri ght Arm] Blood Pressure [Ri ght Upper Arm] Pulse Oximetry 97 98 99 Oxygen Delivery Me thod Nasal Cannula Oxygen Flow Rate 2 08/28/22 12:02 08/28/22 12:30 08/28/22 12:32 Temperature Pulse Rate 67 79 77 Pulse Rate [Right Brachial] Pulse Rate [Right Pulse Oximeter] Respiratory Rate Blood Pressure 128/71 148/82 H Blood Pressure [Ri ght Arm] Blood Pressure [Ri ght Upper Arm] Pulse Oximetry 99 97 100 Oxygen Delivery Me thod Oxygen Flow Rate 08/28/22 12:33 08/28/22 12:45 08/28/22 13:00 Temperature Pulse Rate 75 77 72 Pulse Rate [Right Brachial] Pulse Rate [Right Pulse Oximeter] Respiratory Rate Blood Pressure Blood Pressure [Ri ght Arm] Blood Pressure [Ri ght Upper Arm] Pulse Oximetry 100 95 95 Oxygen Delivery Me thod Oxygen Flow Rate 08/28/22 13:02 08/28/22 13:15 08/28/22 13:30 Temperature Pulse Rate 74 80 71 Pulse Rate [Right Brachial] Pulse Rate [Right Pulse Oximeter] Respiratory Rate Blood Pressure 115/76 Blood Pressure [Ri ght Arm] Blood Pressure [Ri ght Upper Arm] Pulse Oximetry 94 96 95 Oxygen Delivery Me thod Oxygen Flow Rate 08/28/22 13:32 08/28/22 13:45 08/28/22 14:02 Temperature Pulse Rate 71 76 Pulse Rate [Right Brachial] Pulse Rate [Right Pulse Oximeter] Respiratory Rate Blood Pressure 108/76 121/77 Blood Pressure [Ri ght Arm] Blood Pressure [Ri ght Upper Arm] Pulse Oximetry 95 89 Oxygen Delivery Me thod Oxygen Flow Rate 08/28/22 14:04 08/28/22 14:15 08/28/22 14:30 Temperature Pulse Rate 76 77 72 Pulse Rate [Right Brachial] Pulse Rate [Right Pulse Oximeter] Respiratory Rate Blood Pressure Blood Pressure [Ri ght Arm] Blood Pressure [Ri ght Upper Arm] Pulse Oximetry 93 89 96 Oxygen Delivery Me thod Oxygen Flow Rate 08/28/22 14:32 08/28/22 14:45 08/28/22 15:00 Temperature Pulse Rate 79 70 78 Pulse Rate [Right Brachial] Pulse Rate [Right Pulse Oximeter] Respiratory Rate Blood Pressure 106/79 Blood Pressure [Ri ght Arm] Blood Pressure [Ri ght Upper Arm] Pulse Oximetry 95 96 97 Oxygen Delivery Me thod Oxygen Flow Rate 08/28/22 15:02 08/28/22 15:15 08/28/22 15:44 Temperature Pulse Rate 76 71 Pulse Rate [Right Brachial] Pulse Rate [Right Pulse Oximeter] Respiratory Rate 16 Blood Pressure 121/93 H Blood Pressure [Ri ght Arm] Blood Pressure [Ri ght Upper Arm] Pulse Oximetry 96 97 92 Oxygen Delivery Me thod Room Air Oxygen Flow Rate 08/28/22 15:44 08/28/22 16:03 08/28/22 16:03 Temperature 98.1 F 98.1 F Pulse Rate Pulse Rate [Right Brachial] 72 Pulse Rate [Right Pulse Oximeter] Respiratory Rate 16 16 16 Blood Pressure Blood Pressure [Ri ght Arm] 117/77 117/77 Blood Pressure [Ri ght Upper Arm] Pulse Oximetry 92 92 92 Oxygen Delivery Me thod Room Air Room Air Room Air Oxygen Flow Rate 08/28/22 23:00 08/28/22 23:00 08/28/22 23:00 Temperature 98.2 F Pulse Rate Pulse Rate [Right Brachial] 76 Pulse Rate [Right Pulse Oximeter] Respiratory Rate 16 16 Blood Pressure Blood Pressure [Ri ght Arm] 121/69 Blood Pressure [Ri ght Upper Arm] Pulse Oximetry 97 97 Oxygen Delivery Me thod Nasal Cannula Oxygen Flow Rate 1 08/29/22 03:00 Temperature 97.7 F Pulse Rate Pulse Rate [Right Brachial] 79 Pulse Rate [Right Pulse Oximeter] Respiratory Rate 16 Blood Pressure Blood Pressure [Ri ght Arm] 119/69 Blood Pressure [Ri ght Upper Arm] Pulse Oximetry 97 Oxygen Delivery Me thod Nasal Cannula Oxygen Flow Rate 1 Labs/Imaging Labs Labs: White blood cell count is 4.4 from 6 yesterday. However her platelets and hemoglobin are also lower suggesting dilution. CRP remains normal at 0.7. LFTs have decreased today. Imaging Imaging: I did review her imaging with the radiologist regarding the finding of possible pneumatosis. Area appears to be anti dependent so more likely to be within the bowel lumen. Pneumatosis does not match her clinical picture at this time Progress Note: A&P Assessment and plan (1) COPD (chronic obstructive pulmonary disease): Problem details: Taking symbicort 160-4.5 two puffs twice daily, duonebs, albuterol. Status: Acute (2) Systolic CHF with reduced left ventricular function, NYHA class 3: Problem details: -Taking carvedilol 6.25 mg twice daily and losartan 50 mg twice daily. Had echocardiogram 05/31/22, ejection fraction of 55%. -These are on hold while she is NPO, restart when possible -no obvious exacerbation present. When she came up from the ED she is on 2 L secondary to opioids. Chronic Systolic Heart Failure Stage C, NYHA II Etiology: Suspect toxic/chemo, may have XRT component, No CAD on CT coronary angiography LVEF: 55% in 06/15 LVEF: 54% in Mar LVEF ~40% with GLS -17% in Nov 45-50% by TTE Aug with GLS -18% GDMT Beta-caio: Coreg 6.25 mg bid based on HR ~50 ACEi/ARB/ARNI: Losartan 50 mg bid SGLT2i: Not indicated with present LVEF- repeat echo Aldosterone antagonist: Not indicated with present LVEF Volume status: Euvolemic Diuretic regimen: Not needed Device therapy: Not indicated with present LVEF Ischemic assessment: CT coronary angiography without evidence of CAD Aug Status: Acute (3) Small bowel obstruction: Problem details: Discussed this case with Dr. Meraz - we are proceeding with conservative care. She currently does not have an NG tube. She is getting IV fluids, IV analgesics and antiemetics. Serial exams and possible Gastrografin study upcoming. Lactate is normal. Not tachycardic. Resting. Status: Acute Plan The patient is a 67-year-old female with abdominal pain and CT findings of bowel obstruction. She does have significant thickening and also moderate amount of ascites which would suggest a severe obstruction. She is passing a small amount of gas in her nausea is now gone. Because she continues to appear nontoxic, I would like to try a Gastrografin challenge. I placed those orders today and will follow up x-ray tomorrow. I explained to her that if she develops worsening pain or other signs of systemic illness then I would plan on proceeding to the OR for laparotomy. Hopefully she will not need to have surgery because she is currently on steroids for COPD exacerbation and this may make her healing and recovery more difficult. However, obviously if she does not improve she will need to go to the OR.
--- NOTE | 2022-08-29 09:55 | REH.PT ---
PT discussed with and at this time on hold per Dr. Samuels. will reorder PT when needed. Jie Alanis PT
[2022-08-29] MEDS: KETOROLAC 30 MG/ML inj IVP (10:58)
[2022-08-29 11:00] VITALS: BP 101/54; PULSE 63; RESP 16; TEMP 37.1; O2SAT 91
[2022-08-29] MEDS: ONDANSETRON 2 MG/ML inj 4 MG IVP ×2 (11:37→16:10)
--- NOTE | 2022-08-29 14:40 | PC.NURSE ---
PATIENT PLEASANT AND COOPERATIVE WITH STAFFING, UP SBA TOLERATING WELL, RATING PAIN IN ABDOMEN 4/10 BEING MANAGED WITH PRN TORADOL, CONTRAST PER MD ORDER PATIENT TOLERATED FAIRLY, DID GET NAUSEATED AFTER DRINKING 3/4 OF DRINK, PRN ZOFRAN GIVEN WITH RELIEF, PATIENT UNABLE TO TOLERATED DRINKING THE REMAINING 1/4 OF DRINK, HAD A COUPLE LOOSE STOOLS TODAY SMEARS TO SIZE SMALL.
[2022-08-29 15:00] VITALS: BP 126/74; PULSE 68; RESP 22; TEMP 36.6; O2SAT 92; O2SAT 93
--- NOTE | 2022-08-29 18:43 | PM.IMPN1 ---
Progress Note: A&P Assessment and plan (1) Small bowel obstruction: Problem details: Stable. Passing gas and stool. Gastrografin given earlier today. Okay to try clears. -I would like to get her carvedilol levothyroxine anastrozole all restarted if she can tolerate some clears. Her blood pressures will maintain so I can hold on the losartan for now. Status: Acute (2) Systolic CHF with reduced left ventricular function, NYHA class 3: Problem details: -Taking carvedilol 6.25 mg twice daily and losartan 50 mg twice daily. Had echocardiogram 05/31/22, ejection fraction of 55%. -These are on hold while she is NPO, restart when possible -no obvious exacerbation present. When she came up from the ED she is on 2 L secondary to opioids. Chronic Systolic Heart Failure Stage C, NYHA II Etiology: Suspect toxic/chemo, may have XRT component, No CAD on CT coronary angiography LVEF: 55% in 06/15 LVEF: 54% in Mar LVEF ~40% with GLS -17% in Nov 45-50% by TTE Aug with GLS -18% GDMT Beta-caio: Coreg 6.25 mg bid based on HR ~50 ACEi/ARB/ARNI: Losartan 50 mg bid SGLT2i: Not indicated with present LVEF- repeat echo Aldosterone antagonist: Not indicated with present LVEF Volume status: Euvolemic Diuretic regimen: Not needed Device therapy: Not indicated with present LVEF Ischemic assessment: CT coronary angiography without evidence of CAD Aug Status: Acute (3) COPD (chronic obstructive pulmonary disease): Problem details: Taking symbicort 160-4.5 two puffs twice daily, duonebs, albuterol. Status: Acute Subjective Date Seen: 08/29/22 Interval history: Daily Progress Note - Hospital Medicine Day #: 2 CC: SBO, partial OVERNIGHT UPDATES FROM STAFF & MED, LAB, IMAGING UPDATES Still having nausea. Vomiting. Started passing gas and small stools today. GenSurg is following - given gastrograffin earlier today. Vital signs are all reviewed and are unremarkable. She is on room air. Follow-up CBC shows a mild leukopenia and mild thrombocytopenia. INR is 0.98 Sodium is just mildly depressed at 134 Bili has dropped from 2.8-1.6 AST is about the same, ALT has decreased Review of Systems: See subjective Cardiac: No new chest pain/pressure/palpitations. Respiratory: no new dyspnea. GI: Minimal bloating but plenty a nausea Objective: Vitals: see above Lungs: Clear. Cardiac: S1S2. Abdomen: Soft.minimally tender Disposition/Potential discharge - Likely to return to previous living situation. Total time is 35 minutes with greater than 50% spent in counseling and coordination of care. Exam Const: Vital Signs, click to edit/add: Vital Signs - 24 hr 08/28/22 23:00 08/28/22 23:00 08/28/22 23:00 Temperature 98.2 F Pulse Rate [Pulse Oximeter] Pulse Rate [Right Brachial] 76 Respiratory Rate 16 16 Blood Pressure [Ri ght Arm] 121/69 Pulse Oximetry 97 97 Oxygen Delivery Me thod Nasal Cannula Oxygen Flow Rate 1 08/29/22 03:00 08/29/22 07:00 08/29/22 07:00 Temperature 97.7 F Pulse Rate [Pulse Oximeter] Pulse Rate [Right Brachial] 79 Respiratory Rate 16 18 Blood Pressure [Ri ght Arm] 119/69 Pulse Oximetry 97 93 Oxygen Delivery Me thod Nasal Cannula Oxygen Flow Rate 1 08/29/22 07:00 08/29/22 11:00 08/29/22 15:00 Temperature 97.4 F L 98.8 F Pulse Rate [Pulse Oximeter] Pulse Rate [Right Brachial] 72 63 Respiratory Rate 18 16 Blood Pressure [Ri ght Arm] 130/69 101/54 L Pulse Oximetry 93 91 93 Oxygen Delivery Me thod Room Air Room Air Oxygen Flow Rate 0 0 08/29/22 15:00 08/29/22 15:00 Temperature 97.8 F Pulse Rate [Pulse Oximeter] 68 Pulse Rate [Right Brachial] 68 Respiratory Rate 22 22 Blood Pressure [Ri ght Arm] 126/74 Pulse Oximetry 92 Oxygen Delivery Me thod Room Air Oxygen Flow Rate Labs Labs: Laboratory Results - last 24 hr 08/28/22 08/28/22 08/29/22 16:05 17:35 06:14 WBC 4.44 L RBC 3.95 L Hgb 12.7 Hct 37.4 MCV 95 MCH 32 MCHC 34 Plt Count 125 L INR Sodium Potassium Chloride Carbon Dioxide BUN Creatinine Estimated Creat Clear Estimated GFR Glucose Lactate Calcium Ionized Calcium Jami Magnesium Total Bilirubin GGT AST ALT Alkaline Phosphatase C-Reactive Protein NT-Pro-B Natriuret Pep 140 Total Protein Albumin Lipase TSH Urine Color Gaby A Urine Appearance Cloudy A Urine pH 5.5 Ur Specific [place] 1.020 Urine Protein Trace A Urine Glucose (UA) Negative Urine Ketones 2+ A Urine Blood Negative Urine Nitrite Negative Urine Bilirubin 2+ A Urine Urobilinogen 2.0 A Ur Leukocyte Esterase Negative Urine RBC 0-2 Urine WBC 2-5 Ur Squamous Epith Cells Moderate A Calcium Oxalate Crystal Moderate A Urine Bacteria None 08/29/22 08/29/22 08/29/22 06:14 06:14 06:14 WBC RBC Hgb Hct MCV MCH MCHC Plt Count INR 0.98 Sodium 134 L Potassium 4.0 Chloride 107 Carbon Dioxide 20 BUN 14 Creatinine 0.8 Estimated Creat Clear 45.78 Estimated GFR 81 Glucose 65 Lactate 0.7 Calcium 7.4 L Ionized Calcium Jami 1.03 L Magnesium 1.9 Total Bilirubin 1.6 H GGT 31 AST 51 H ALT 28 Alkaline Phosphatase 34 L C-Reactive Protein 0.7 NT-Pro-B Natriuret Pep 222 Total Protein 5.0 L Albumin 2.9 L Lipase 13 L TSH Urine Color Urine Appearance Urine pH Ur Specific [place] Urine Protein Urine Glucose (UA) Urine Ketones Urine Blood Urine Nitrite Urine Bilirubin Urine Urobilinogen Ur Leukocyte Esterase Urine RBC Urine WBC Ur Squamous Epith Cells Calcium Oxalate Crystal Urine Bacteria 08/29/22 06:14 WBC RBC Hgb Hct MCV MCH MCHC Plt Count INR Sodium Potassium Chloride Carbon Dioxide BUN Creatinine Estimated Creat Clear Estimated GFR Glucose Lactate Calcium Ionized Calcium Jami Magnesium Total Bilirubin GGT AST ALT Alkaline Phosphatase C-Reactive Protein NT-Pro-B Natriuret Pep Total Protein Albumin Lipase TSH 1.090 Urine Color Urine Appearance Urine pH Ur Specific [place] Urine Protein Urine Glucose (UA) Urine Ketones Urine Blood Urine Nitrite Urine Bilirubin Urine Urobilinogen Ur Leukocyte Esterase Urine RBC Urine WBC Ur Squamous Epith Cells Calcium Oxalate Crystal Urine Bacteria
[2022-08-29 19:00] VITALS: BP 128/78; PULSE 81; RESP 18; TEMP 36.9; O2SAT 93
[2022-08-29] MEDS: carvediloL 6.25 MG TABLET PO (21:14)
[2022-08-29 23:00] VITALS: BP 122/75; PULSE 77; RESP 18; TEMP 36.6; O2SAT 94
--- NOTE | 2022-08-29 23:26 | PC.NURSE ---
End of shift-- Very pleasant and cooperative, alert and oriented patient. VSS and pt is afebrile. SPO2 maintained >90% on RA. She denied any pain. LS CTA. BS+ x4 and pt stated she had 10x liquid BMs this evening. She c/o nausea this afternoon that was resolved with Zofran, then tolerated small amounts of clear liquids this evening. She was up to the BR independently and tolerated it well. Report to oncoming shift.
[2022-08-30 03:00] VITALS: BP 122/75; PULSE 68; RESP 18; TEMP 36.6; O2SAT 94
[2022-08-30] MEDS: LACTATED RINGERS 1000 ML 1,000 ML 125 ML IV ×3 (04:22→21:04)
--- NOTE | 2022-08-30 05:30 | PC.NURSE ---
Shift note: Pt is doing well. Appears to regain strength as pt able ambulate to BR independently. Pt said she had 10x BM yesterday but no BM tonight. Denied pain, SOB, N/V.
[2022-08-30] MEDS: LEVOTHYROXINE 25 MCG TABLET PO (06:01)
[2022-08-30 07:00] VITALS: BP 133/67; PULSE 67; RESP 18; TEMP 36.6; O2SAT 92
--- NOTE | 2022-08-30 07:00 | CRLHL7_ITS ---
For Patients: As a result of the Century Cures Act, medical imaging exams and procedure reports are released immediately into your electronic medical record. You may view this report before your referring provider. If you have questions, please contact your health care provider. Indication: Small-bowel obstruction Technique: Seminal U study obtained supine Comparison: The java lead developer image of a CT dated August 28, 2022. Findings: Persistent mild to moderate dilation of small bowel similar to the prior study. There is contrast within the colon. Assuming this was given orally, this indicates that any associated small-bowel obstruction is incomplete or that the dilated small-bowel is due to an ileus. Impression: Persistent dilation of small bowel similar to the prior study. Contrast within the colon as discussed above Dictated by Chalo Ramon MD @ 08/30/2022 7:36:05 AM (Electronically Signed)
--- NOTE | 2022-08-30 08:26 | P.GSPN_ITS ---
Subjective Subjective Date Seen: 08/30/22 Interval history: Patient denies pain. After taking the Gastrografin several hours later she had liquidy bowel movements which she is continuing to have. She was having some nausea initially and why I am seeing her this morning she is having some nausea after her nebulizer treatment but she would like to eat. Denies abdominal pain.. Exam Narrative: Exam Narrative: General: No acute distress though she appears somewhat fatigued Abdomen: Soft. Nontender to palpation. Const: Vital Signs, click to edit/add: Vital Signs - 24 hr 08/29/22 11:00 08/29/22 15:00 08/29/22 15:00 Temperature 98.8 F 97.8 F Pulse Rate [Pulse Oximeter] Pulse Rate [Right Brachial] 63 68 Respiratory Rate 16 22 Blood Pressure [Ri ght Arm] 101/54 L 126/74 Pulse Oximetry 91 93 92 Oxygen Delivery Me thod Room Air Room Air Oxygen Flow Rate 0 08/29/22 15:00 08/29/22 19:00 08/29/22 23:00 Temperature 98.5 F Pulse Rate [Pulse Oximeter] 68 81 Pulse Rate [Right Brachial] Respiratory Rate 22 18 Blood Pressure [Ri ght Arm] 128/78 Pulse Oximetry 93 94 Oxygen Delivery Me thod Room Air Oxygen Flow Rate 08/29/22 23:00 08/29/22 23:00 08/30/22 03:00 Temperature 97.9 F 97.9 F Pulse Rate [Pulse Oximeter] 77 Pulse Rate [Right Brachial] 68 Respiratory Rate 18 18 18 Blood Pressure [Ri ght Arm] 122/75 122/75 Pulse Oximetry 94 94 Oxygen Delivery Me thod Room Air Room Air Oxygen Flow Rate 0 0 Labs/Imaging Labs Labs: No new labs today. Imaging Imaging: Indication: Small-bowel obstruction Technique: Seminal U study obtained supine Comparison: The rugby union footballer image of a CT dated August 28, 2022. Findings: Persistent mild to moderate dilation of small bowel similar to the prior study. There is contrast within the colon. Assuming this was given orally, this indicates that any associated small-bowel obstruction is incomplete or that the dilated small-bowel is due to an ileus. Impression: Persistent dilation of small bowel similar to the prior study. Contrast within the colon as discussed above Progress Note: A&P Assessment and plan (1) Small bowel obstruction: Problem details: Stable. Passing gas and stool. Gastrografin given earlier today. Okay to try clears. -I would like to get her carvedilol levothyroxine anastrozole all restarted if she can tolerate some clears. Her blood pressures will maintain so I can hold on the losartan for now. Status: Acute Assessment and Plan: The patient is a 67-year-old female with inflamed small bowel with possible now improved small-bowel obstruction. She still has dilatation of her small bowel noted on imaging which I reviewed this morning. However the contrast is clearly all the way in her colon. Recommend slow advancement of diet as long as pain and nausea is improved. She feels as though the nausea this morning was related to the taste of the nebulizer. I explained to her the importance of going slow. While I do not think she remains obstructed, I do not think her bowel is completely back to normal and therefore will go slowly with diet advancement.
[2022-08-30] MEDS: BUDESONIDE 0.5 MG/2ML NEB NEB (09:23)
[2022-08-30] MEDS: carvediloL 6.25 MG TABLET PO ×2 (09:23→20:09)
--- NOTE | 2022-08-30 10:42 | P.IMPN_ITS ---
Progress Note: A&P Assessment and plan (1) Small bowel obstruction: Problem details: Stable. Passing gas and stool. Gastrografin 08/29/22. Trying clears today, going slow. Status: Acute (2) Systolic CHF with reduced left ventricular function, NYHA class 3: Problem details: -Taking carvedilol 6.25 mg twice daily and losartan 50 mg twice daily. Had echocardiogram 05/31/22, ejection fraction of 55%. -no obvious exacerbation present. When she came up from the ED she is on 2 L secondary to opioids. On RA now. Chronic Systolic Heart Failure Stage C, NYHA II Etiology: Suspect toxic/chemo, may have XRT component, No CAD on CT coronary angiography LVEF: 55% in 06/15 LVEF: 54% in Mar LVEF ~40% with GLS -17% in Nov 45-50% by TTE Aug with GLS -18% GDMT Beta-caio: Coreg 6.25 mg bid based on HR ~50 ACEi/ARB/ARNI: Losartan 50 mg bid SGLT2i: Not indicated with present LVEF- repeat echo Aldosterone antagonist: Not indicated with present LVEF Volume status: Euvolemic Diuretic regimen: Not needed Device therapy: Not indicated with present LVEF Ischemic assessment: CT coronary angiography without evidence of CAD Aug Status: Chronic (3) COPD (chronic obstructive pulmonary disease): Problem details: Taking symbicort 160-4.5 two puffs twice daily, duonebs, albuterol. Status: Chronic (4) [place] (hard of hearing): Problem details: wears aides Status: Chronic (5) Depression: Problem details: Restart home meds Status: Chronic (6) Hypothyroid: Problem details: levothyroxine restarted Status: Chronic Time Spent With Patient Total time spent: Today I spent 25 minutes rounding on the patient. Greater than 50% included discussing care with the team, reviewing data, reconciling medications, updating and managing the care plan. Subjective Time Seen by Provider: 10:15 Date Seen: 08/30/22 Interval history: Fabiana had a gastrograffin study yesterday. She states she had 14 liquid stools overnight. She did not get much sleep because of that and because of her restless legs. She had a little nausea this morning. Her Abd Xray this morning shows contrast in her colon. After Dr. Martinez spoke with her this morning, she was advanced to clears. She had a few bites of ice cream and some sips of juice almost an hour ago. She is waiting now to see how it goes, not wanting to go too quickly. Exam Const: Vital Signs, click to edit/add: Vital Signs - 24 hr 08/29/22 11:00 08/29/22 15:00 08/29/22 15:00 Temperature 98.8 F 97.8 F Pulse Rate [Pulse Oximeter] Pulse Rate [Right Brachial] 63 68 Respiratory Rate 16 22 Blood Pressure [Ri ght Arm] 101/54 L 126/74 Pulse Oximetry 91 93 92 Oxygen Delivery Me thod Room Air Room Air Oxygen Flow Rate 0 08/29/22 15:00 08/29/22 19:00 08/29/22 23:00 Temperature 98.5 F Pulse Rate [Pulse Oximeter] 68 81 Pulse Rate [Right Brachial] Respiratory Rate 22 18 Blood Pressure [Ri ght Arm] 128/78 Pulse Oximetry 93 94 Oxygen Delivery Me thod Room Air Oxygen Flow Rate 08/29/22 23:00 08/29/22 23:00 08/30/22 03:00 Temperature 97.9 F 97.9 F Pulse Rate [Pulse Oximeter] 77 Pulse Rate [Right Brachial] 68 Respiratory Rate 18 18 18 Blood Pressure [Ri ght Arm] 122/75 122/75 Pulse Oximetry 94 94 Oxygen Delivery Me thod Room Air Room Air Oxygen Flow Rate 0 0 08/30/22 07:00 08/30/22 07:00 08/30/22 07:00 Temperature 97.8 F Pulse Rate [Pulse Oximeter] 67 67 Pulse Rate [Right Brachial] Respiratory Rate 18 18 Blood Pressure [Ri ght Arm] 133/67 Pulse Oximetry 92 92 Oxygen Delivery Me thod Room Air Oxygen Flow Rate
[2022-08-30 11:00] VITALS: BP 127/72; PULSE 53; RESP 15; O2SAT 93
[2022-08-30] MEDS: OMEPRAZOLE 20 MG CAPSULE DR PO (12:32)
[2022-08-30] MEDS: ONDANSETRON 2 MG/ML inj 4 MG IVP ×2 (12:38→17:04)
[2022-08-30] MEDS: ALBUTEROL INHALER 2 PUFF IH (13:19)
[2022-08-30 15:00] VITALS: BP 129/80; PULSE 60; RESP 15; RESP 16; TEMP 36.8; O2SAT 95
--- NOTE | 2022-08-30 15:31 | PC.NURSE ---
Nursing Care Hours: [id number] Pt this shift calm and cooperative. C/o frequent loose stools that are clear in color. Denies pain, but feels nauseated and yucky. Zofran given per eMAR. Pt walked the [place] x1. Independent in room. IV patent and running LR. Advanced to full liquids, did not tolerate morning tray well. Ate about 25% and then lost interest. Appetite is still present as pt reports seeing food on TV and wanting it.
[2022-08-30 19:00] VITALS: BP 151/88; PULSE 54; RESP 16; TEMP 36.9; O2SAT 94
--- NOTE | 2022-08-30 19:22 | PC.NURSE ---
Shift note: Pt complained of feeling nauseated, Ondansetron IV given and was effective.
[2022-08-30] MEDS: KETOROLAC 30 MG/ML inj IVP (19:47)
[2022-08-30] MEDS: LOSARTAN POTASSIUM 50 MG TABLET PO (20:08)
[2022-08-30] MEDS: LORazepam 2 MG/ML inj IVP (20:09)
[2022-08-30 23:00] VITALS: PULSE 54; RESP 16; O2SAT 94
[2022-08-31 03:00] VITALS: BP 150/85; PULSE 61; RESP 16; TEMP 36.6; O2SAT 92
[2022-08-31] MEDS: LACTATED RINGERS 1000 ML 1,000 ML 125 ML IV ×3 (04:46→19:57)
[2022-08-31] MEDS: LEVOTHYROXINE 25 MCG TABLET PO (05:36)
[2022-08-31] MEDS: OMEPRAZOLE 20 MG CAPSULE DR PO (06:27)
--- NOTE | 2022-08-31 06:30 | PC.NURSE ---
[id number]: patient up ad mike to BR, steady gait. c/o pain 1X in the evening but no further c/o pain, no nausea overnight. overnight had 4 loose stools, appears to have slept well overnight. tolerating full liquid diet.
[2022-08-31 07:00] VITALS: PULSE 55; RESP 18
[2022-08-31] MEDS: LOSARTAN POTASSIUM 50 MG TABLET PO ×2 (09:30→20:35)
[2022-08-31] MEDS: BUDESONIDE 0.5 MG/2ML NEB NEB (09:30)
[2022-08-31] MEDS: carvediloL 6.25 MG TABLET PO ×2 (09:30→20:34)
[2022-08-31 12:15] VITALS: BP 147/91; PULSE 54; RESP 18; TEMP 36.9; O2SAT 93
[2022-08-31] MEDS: KETOROLAC 30 MG/ML inj IVP ×2 (12:22→18:37)
--- NOTE | 2022-08-31 13:53 | PM.GSPN ---
Subjective Subjective Date Seen: 08/31/22 Interval history: Guadalupe says that she is feeling better overall. She had loose stools again overnight. She had significant nausea last night after eating supper. She had pain after she was dry heaving. Today she states that she has a very small amount of pain which is 2/10 but she feels that overall she is getting much better. She was able to tolerate breakfast without difficulty. Exam Narrative: Exam Narrative: General: Alert and oriented. Patient actually appears more well today than previously Abdomen: Soft. Very minimally tender without guarding or rebound. Bowel sounds present. Const: Vital Signs, click to edit/add: Vital Signs - 24 hr 08/30/22 23:00 08/30/22 23:00 08/30/22 23:00 Temperature Pulse Rate [Pulse Oximeter] 54 L 54 L Respiratory Rate 16 16 Blood Pressure [Ri ght Arm] Pulse Oximetry 94 94 Oxygen Delivery Me thod Room Air Oxygen Flow Rate 0 08/31/22 03:00 08/31/22 12:15 08/30/22 15:00 Temperature 98 F 98.4 F Pulse Rate [Pulse Oximeter] 61 54 L Respiratory Rate 16 18 Blood Pressure [Ri ght Arm] 150/85 H 147/91 H Pulse Oximetry 92 93 95 Oxygen Delivery Me thod Room Air Room Air Oxygen Flow Rate 08/30/22 15:00 08/30/22 15:00 08/30/22 19:00 Temperature 98.2 F 98.4 F Pulse Rate [Pulse Oximeter] 60 54 L Respiratory Rate 15 16 16 Blood Pressure [Ri ght Arm] 129/80 151/88 H Pulse Oximetry 95 94 Oxygen Delivery Me thod Room Air Room Air Oxygen Flow Rate 0 0 Progress Note: A&P Assessment and plan (1) Small bowel obstruction: Problem details: Stable. Passing gas and stool. Gastrografin 08/29/22. Trying clears today, going slow. Status: Acute Plan The patient is a 67-year-old female hospitalized with COPD exacerbation and possible small bowel obstruction who had return of bowel function very shortly after administration of Gastrografin and continued to do so yesterday and the day before. She has not had a bowel movement so far today but she feels overall that she is getting better. -slow advancement of diet as tolerated. If she has persistent nausea them back off on the diet. -as long as she has antegrade bowel function again we will proceed slowly. -if she has worsening of pain or there are other concerning findings consider repeat imaging.
[2022-08-31 15:00] VITALS: PULSE 59; RESP 18
[2022-08-31 16:00] VITALS: BP 160/87; PULSE 64; RESP 18; TEMP 37; O2SAT 93
[2022-08-31] MEDS: LORazepam 2 MG/ML inj IVP (17:05)
--- NOTE | 2022-08-31 17:05 | PM.IMPN1 ---
Progress Note: A&P Assessment and plan (1) Small bowel obstruction: Problem details: Stable. Passing gas and stool. Gastrografin 08/29/22. Tolerating full liquids. Advance to regular diet this afternoon and evening. If she tolerates this, discharge home tomorrow. Status: Acute (2) Systolic CHF with reduced left ventricular function, NYHA class 3: Problem details: -Taking carvedilol 6.25 mg twice daily and losartan 50 mg twice daily. Had echocardiogram 05/31/22, ejection fraction of 55%. -no obvious exacerbation present. When she came up from the ED she is on 2 L secondary to opioids. On RA now. Chronic Systolic Heart Failure Stage C, NYHA II Etiology: Suspect toxic/chemo, may have XRT component, No CAD on CT coronary angiography LVEF: 55% in 06/15 LVEF: 54% in Mar LVEF ~40% with GLS -17% in Nov 45-50% by TTE Aug with GLS -18% GDMT Beta-caio: Coreg 6.25 mg bid based on HR ~50 ACEi/ARB/ARNI: Losartan 50 mg bid SGLT2i: Not indicated with present LVEF- repeat echo Aldosterone antagonist: Not indicated with present LVEF Volume status: Euvolemic Diuretic regimen: Not needed Device therapy: Not indicated with present LVEF Ischemic assessment: CT coronary angiography without evidence of CAD Aug Status: Chronic (3) COPD (chronic obstructive pulmonary disease): Problem details: Taking symbicort 160-4.5 two puffs twice daily, duonebs, albuterol. Status: Chronic (4) [place] (hard of hearing): Problem details: wears aides Status: Chronic (5) Depression: Problem details: Restart home meds Status: Chronic (6) Hypothyroid: Problem details: levothyroxine restarted Status: Chronic Subjective Time Seen by Provider: 12:10 Date Seen: 08/31/22 Interval history: Feeling much better overall today. She got some sleep last night. She continued to have some diarrhea yesterday, but notes it has been better overnight and she has had no bowel movements since this morning. She has been taking it slow with eating, but is able to tolerate a few bites of a full liquid diet each meal now. Denies nausea. Mild abdominal pain anteriorly. Exam Narrative: Exam Narrative: General: No acute distress. Awake, alert, oriented x3. No pallor. No jaundice. Oropharynx: Clear. Mucous membranes moist. Cardiovascular: Regular rate and rhythm. No murmurs, gallops, or rubs. Respiratory: Clear to auscultation bilaterally. No wheezes or crackles. Abdomen: Bowel sounds present. Soft, nondistended, nontender. Const: Vital Signs, click to edit/add: Vital Signs - 24 hr 08/30/22 23:00 08/30/22 23:00 08/30/22 23:00 Temperature Pulse Rate [Pulse Oximeter] 54 L 54 L Respiratory Rate 16 16 Blood Pressure [Ri ght Arm] Pulse Oximetry 94 94 Oxygen Delivery Me thod Room Air Oxygen Flow Rate 0 08/31/22 03:00 08/31/22 12:15 08/31/22 07:00 Temperature 98 F 98.4 F Pulse Rate [Pulse Oximeter] 61 54 L 55 L Respiratory Rate 16 18 18 Blood Pressure [Ri ght Arm] 150/85 H 147/91 H Pulse Oximetry 92 93 Oxygen Delivery Me thod Room Air Room Air Oxygen Flow Rate 08/30/22 19:00 Temperature 98.4 F Pulse Rate [Pulse Oximeter] 54 L Respiratory Rate 16 Blood Pressure [Ri ght Arm] 151/88 H Pulse Oximetry 94 Oxygen Delivery Me thod Room Air Oxygen Flow Rate 0
[2022-08-31 20:00] VITALS: BP 136/88; PULSE 94; RESP 18; TEMP 36.6; O2SAT 94
--- NOTE | 2022-08-31 20:15 | PC.NURSE ---
Shift note [id number]: Toradol for pain. advance diet as tolerated, pt did not tolerate regular diet - back off to full liquids d/t nausea and dry heaves. New IV started to R AC d/t infiltration/leaking. Trace edema to BLE. Encouraged ambulation in hallway today, pt up in room however did not ambulate in huerta. Some wheezes to lungs, improved with neb.
[2022-08-31] MEDS: MELATONIN 3 MG TABLET PO (20:34)
[2022-08-31] MEDS: SYMBICORT 160/4.5 INH (20:36)
[2022-09-01 00:56] VITALS: BP 109/72; PULSE 77; RESP 18; TEMP 36.8; O2SAT 96
[2022-09-01 05:04] VITALS: BP 111/74; PULSE 82; RESP 18; TEMP 36.8; O2SAT 94
[2022-09-01] MEDS: OMEPRAZOLE 20 MG CAPSULE DR PO (07:32)
[2022-09-01] MEDS: LEVOTHYROXINE 25 MCG TABLET PO (07:32)
--- NOTE | 2022-09-01 07:32 | PC.NURSE ---
pt complained of leaking IV and would not allow write to restart after troubleshooting. IV port flushes well with no sign of leakage. No BM during this shift. C/o mild abdominal pain but coping without PRN.
[2022-09-01 09:00] VITALS: BP 128/76; PULSE 58; RESP 16; TEMP 37; O2SAT 95
[2022-09-01] MEDS: LOSARTAN POTASSIUM 50 MG TABLET PO (09:07)
[2022-09-01] MEDS: carvediloL 6.25 MG TABLET PO (09:07)
[2022-09-01] MEDS: SYMBICORT 160/4.5 INH (09:07)
--- NOTE | 2022-09-01 12:03 | PM.DS1 ---
DS: Providers Provider Time Seen by Provider: 08:01 Date Seen: 09/01/22 Date of admission: 08/30/22 14:11 Primary care physician: Suzy Stewart Admitting Clinician: Beulah Ford MD Consults: 08/28/22 15:44 Consult to Physical Therapy [CONS] Routine Comment: Reason(s) for PT Consult:: Evaluate and Treat Any Restrictions?:: No Restrictions Consult to Party Plan Sales Director [CONS] Routine Comment: Reason for Consult:: Social Service Consult Attending Physician on discharge: Beulah Ford MD Date of Discharge: 09/01/22 DS: Diagnosis Discharge Diagnosis (1) Small bowel obstruction: Status: Acute Problem details: Partial. Passing gas and stool. Gastrografin 08/29/22. (2) COPD (chronic obstructive pulmonary disease): Status: Chronic Problem details: Taking symbicort 160-4.5 two puffs twice daily, duonebs, albuterol. (3) [place] (hard of hearing): Status: Chronic Problem details: wears aides (4) Osteoporosis: Status: Chronic (5) Depression: Status: Chronic Problem details: Restart home meds (6) Hypothyroid: Status: Chronic Problem details: levothyroxine restarted (7) Infiltrating ductal carcinoma of breast: Status: Chronic Problem details: dx Aug 2018. Left. No tumor identified in surgery - chemo had resolved. Infiltrating ductal carcinoma, clinical stage IIA (cT2 cN0 Mx), ER positive, MA positive, HER2 3+ positive by IHC She underwent neoadjuvant chemotherapy with dose dense Adriamycin and Cytoxan followed by Taxol and concurrent trastuzumab and Pertuzumab. She then underwent surgery with a plan to resume trastuzumab and Pertuzumab with the intent to complete 1 year of treatment. (8) Systolic CHF with reduced left ventricular function, NYHA class 3: Status: Chronic Problem details: -Taking carvedilol 6.25 mg twice daily and losartan 50 mg twice daily. Had echocardiogram 05/31/22, ejection fraction of 55%. -no obvious exacerbation present. When she came up from the ED she is on 2 L secondary to opioids. On RA now. Chronic Systolic Heart Failure Stage C, NYHA II Etiology: Suspect toxic/chemo, may have XRT component, No CAD on CT coronary angiography LVEF: 55% in 06/15 LVEF: 54% in Mar LVEF ~40% with GLS -17% in Nov 45-50% by TTE Aug with GLS -18% GDMT Beta-caio: Coreg 6.25 mg bid based on HR ~50 ACEi/ARB/ARNI: Losartan 50 mg bid SGLT2i: Not indicated with present LVEF- repeat echo Aldosterone antagonist: Not indicated with present LVEF Volume status: Euvolemic Diuretic regimen: Not needed Device therapy: Not indicated with present LVEF Ischemic assessment: CT coronary angiography without evidence of CAD Aug (9) Asymptomatic bacteriuria: Status: Acute Problem details: Specimen: [id number] COMP Collected: 08/28/22 Received: 08/28/22 Source: Urine CC Sp Descrip: Sub Dr: Beulah Ford M.D. Other Dr: Procedure Result Site Urine Culture Final ML Organism 1 Escherichia coli Ur [place] Count 10,000 - 20,000 CFU/ml 08/30/22 GRAM NEGATIVE RODS ISOLATED. SUBCULTURE FOR WORK-UP ON 08/31/22. E coli AROLDO RX --------- --- Ampicillin <=2 S Ampicillin/Sulbactam <=2 S Cefazolin <=4 S Cefepime <=1 S Cefoxitin <=4 S Ceftazidime <=1 S Ceftriaxone <=1 S Ciprofloxacin <=0.25 S Ertapenem <=0.5 S Gentamicin <=1 S Imipenem 1 S Levofloxacin <=0.12 S Nitrofurantoin 32 S Tobramycin <=1 S Trimethoprim/Sulfamethoxazole <=20 S Piperacillin/Tazobactam <=4 S DS: Summary Hospital Course Hospital Course: This is a 67-year-old female who presented with 4 days of nausea and vomiting and abdominal pain. She had no fever or cough, and no sick contacts. She has a complex medical history that includes breast cancer, chemotherapy-induced heart failure, COPD, tobacco dependence, and depression. CT abdomen and pelvis upon presentation showed severely dilated loops of small bowel with wall thickening and a suspected transition point in the right lower abdomen/pelvis. Ascites in inflammation throughout. There were questionable small areas of bowel pneumatosis. The general surgeon and radiologist discussed this and recommended conservative care. She did well NPO and was given a Gastrografin study with good results. From there she advanced her diet slowly and continued to do well. Her urine culture came back positive for E coli, however she has no urinary symptoms. Therefore she did not receive any antibiotics for asymptomatic bacteriuria. I spoke with her about symptoms of a UTI and have asked her to follow-up with her primary if any of these develop. Today she is tolerating a regular diet without nausea or vomiting. She continues to have flatus and bowel movements and is discharged home in stable condition. Time Spent with Patient Time attestation: Total time spent providing and/or coordinating discharge services: Exam Narrative: Exam Narrative: General: No acute distress. Awake, alert, oriented x3. No pallor. No jaundice. Oropharynx: Clear. Mucous membranes moist. Cardiovascular: Regular rate and rhythm. No murmurs, gallops, or rubs. Respiratory: Clear to auscultation bilaterally. No wheezes or crackles. Abdomen: Bowel sounds present. Soft, nondistended, nontender. Const: Vital Signs, click to edit/add: Vital Signs - 24 hr 08/31/22 12:15 08/31/22 16:00 08/31/22 15:00 Temperature 98.4 F 98.6 F Pulse Rate [Pulse Oximeter] 54 L 64 59 L Respiratory Rate 18 18 18 Blood Pressure [Ri ght Arm] 147/91 H 160/87 H Pulse Oximetry 93 93 Oxygen Delivery Me thod Room Air Room Air Oxygen Flow Rate 0 08/31/22 20:00 09/01/22 00:56 09/01/22 05:04 Temperature 98 F 98.2 F 98.2 F Pulse Rate [Pulse Oximeter] 94 77 82 Respiratory Rate 18 18 18 Blood Pressure [Ri ght Arm] 136/88 109/72 111/74 Pulse Oximetry 94 96 94 Oxygen Delivery Me thod Room Air Room Air Room Air Oxygen Flow Rate 0 09/01/22 09:00 Temperature 98.6 F Pulse Rate [Pulse Oximeter] 58 L Respiratory Rate 16 Blood Pressure [Ri ght Arm] 128/76 Pulse Oximetry 95 Oxygen Delivery Me thod Room Air Oxygen Flow Rate DS: Data Data Completed and Pending Completed studies during hospitalization: Specimen: [id number] Collected: 08/28/22 Received: 08/28/22 Source: Urine CC Sp Descrip: Sub Dr: Beulah Ford M.D. Other Dr: Procedure Result Site Urine Culture Final ML Organism 1 Escherichia coli Ur [place] Count 10,000 - 20,000 CFU/ml 08/30/22 GRAM NEGATIVE RODS ISOLATED. SUBCULTURE FOR WORK-UP ON 08/31/22. E coli AROLDO RX --------- --- Ampicillin <=2 S Ampicillin/Sulbactam <=2 S Cefazolin <=4 S Cefepime <=1 S Cefoxitin <=4 S Ceftazidime <=1 S Ceftriaxone <=1 S Ciprofloxacin <=0.25 S Ertapenem <=0.5 S Gentamicin <=1 S Imipenem 1 S Levofloxacin <=0.12 S Nitrofurantoin 32 S Tobramycin <=1 S Trimethoprim/Sulfamethoxazole <=20 S Piperacillin/Tazobactam <=4 S Ordering Physician: Jamey Cervantes M.D. Date of Service: 08/28/22 Procedure(s): CT abdomen pelvis w con Accession Number(s): [id number] cc: Jamey Cervantes M.D.; Suzy Stewart ~ For Patients: As a result of the Century Cures Act, medical imaging exams and procedure reports are released immediately into your electronic medical record. You may view this report before your referring provider. If you have questions, please contact your health care provider. INDICATION: vomiting, abd pain since New Years Kaitlin TECHNIQUE: CT abdomen and pelvis with 58cc Isovue 370 IV contrast. COMPARISON: None. FINDINGS: The liver is normal in size, shape and attenuation. Gallbladder and biliary tree are normal. The spleen, adrenal glands and pancreas are within normal limits. Kidneys enhance symmetrically. Hyperdense lesions are too small to characterize but likely represent cysts. No hydronephrosis. Mild bladder wall thickening may relate to degree of decompression but could be seen with cystitis. Severely dilated loops of small bowel with wall thickening throughout the upper and left ruben abdomen. Transition point suspected within the right lower abdomen on series 2, image 201. There is fluid and inflammation at the root of the mesentery and moderate volume ascites within the lower abdomen/pelvis. Few areas of questionable small bowel pneumatosis (for example series 4, image 33 and 34). No evidence of portal venous gas. No evidence of free air. Suspect prior hysterectomy. The lower chest is unremarkable. IMPRESSION: Severely dilated loops of small bowel with wall thickening and suspected transition point within the right lower abdomen/pelvis. There is moderate volume ascites and inflammation throughout the mesentery. Findings are highly concerning for small bowel obstruction. Few areas of questionable small bowel pneumatosis (for example series 4, image 33 and 34). Mild bladder wall thickening may relate to degree of decompression but could be seen with cystitis. Findings discussed with Dr. Cervantes at 1:30 p.m. 08/28/2022. Please note that all CT scans at this facility use dose modulation, iterative reconstruction, and/or weight-based dosing when appropriate to reduce radiation dose to as low as reasonably achievable. Dictated by Michelet Bates MD @ 08/28/2022 1:34:03 PM (Electronically Signed) Ordering Physician: Daniel Marx M.D. Date of Service: 08/28/22 Procedure(s): XR chest 1V portable Accession Number(s): [id number] cc: Daniel Marx M.D.; Suzy Stewart ~ For Patients: As a result of the Cures Act, medical imaging exams and procedure reports are released immediately into your electronic medical record. You may view this report before your referring provider. If you have questions, please contact your health care provider. INDICATION: Cough TECHNIQUE: Two view chest. FINDINGS: The lungs are clear. The heart, mediastinum and pulmonary vessels are of normal size. There is no evidence of pleural disease. Clips over the left chest. Mastectomy change axillary clips. IMPRESSION: Negative chest. Dictated by Elsa Wan MD @ 08/28/2022 5:50:46 PM (Electronically Signed) Ordering Physician: Geovanna Martinez M.D. Date of Service: 08/30/22 Procedure(s): XR abdomen 1V Accession Number(s): [id number] cc: Geovanna Martinez M.D.; Suzy Stewart For Patients: As a result of the Cures Act, medical imaging exams and procedure reports are released immediately into your electronic medical record. You may view this report before your referring provider. If you have questions, please contact your health care provider. Indication: Small-bowel obstruction Technique: Seminal U study obtained supine Comparison: The automation engineering manager image of a CT dated August 28, 2022. Findings: Persistent mild to moderate dilation of small bowel similar to the prior study. There is contrast within the colon. Assuming this was given orally, this indicates that any associated small-bowel obstruction is incomplete or that the dilated small-bowel is due to an ileus. Impression: Persistent dilation of small bowel similar to the prior study. Contrast within the colon as discussed above Dictated by Chalo Ramon MD @ 08/30/2022 7:36:05 AM (Electronically Signed) Discharge Plan Discharge Disposition: Home, Self-Care Date of Admission: 08/30/22 14:11 Attending Provider on Discharge: Jaja Loo Primary Care Provider: Suzy Stewart Condition: Unchanged Anticipated Discharge Date/Time: 09/01/22 12:26 Discharge Medications: Continued albuterol sulfate 90 mcg/actuation HFA aerosol inhaler 2 puff INHALATION Q4H PRN anastrozole 1 mg tablet 1 mg PO DAILY budesonide-formoterol [Symbicort] 160-4.5 mcg/actuation HFA aerosol inhaler 2 puff INHALATION BID carvedilol 6.25 mg tablet 6.25 mg PO BID levothyroxine 25 mcg tablet 25 mcg PO DAILY lorazepam 1 mg tablet 1 mg PO TID PRN losartan 50 mg tablet 50 mg PO BID nystatin 100,000 unit/mL suspension 5 ml PO QID Label Comments: Swish and spit 5 mL by mouth four times daily For thrush trazodone 150 mg tablet 150 mg PO HS PRN oxycodone-acetaminophen 5-325 mg tablet 1 tab PO Q4H PRN omeprazole 20 mg capsule,delayed release(DR/EC) 20 mg PO DAILY aspirin [Adult Aspirin Regimen] 81 mg tablet,delayed release (DR/EC) 81 mg PO DAILY ipratropium-albuterol 0.5 mg-3 mg(2.5 mg base)/3 mL solution for nebulization 3 ml inhalation Q6H PRN Calcium 600 + D(3) 600 mg-5 mcg (200 unit) capsule 1 cap PO BID Discontinued doxycycline hyclate 100 mg tablet 100 mg PO BID prednisone 20 mg tablet 60 mg PO DAILY Label Comments: Take 3 Tablets by mouth once daily with a meal for 4 days, THEN 2 Tablets for 4 days, THEN 1 Tablet daily for 4 days. Discharge Orders: Discharge Order (Routine); Ordered 09/01/22 Ordered By: Jaja Loo Patient Education: Bowel Obstruction (DC) Additional Instructions: Use IS at home q1H while awake for 3 days. Activity Level: No Restrictions Discharge Diet: Regular Follow Up Appointments: Suzy Stewart [Primary Care Provider] - (as needed) Forms: MyHealth Info Instructions
[2022-09-01 14:37] VITALS: BP 121/93; PULSE 71; RESP 16; TEMP 37
--- NOTE | 2022-09-01 14:39 | PC.NURSE ---
Discharge: Patient upset with discharge time, explained discharge process and that hospital discharges at all times of the day. IV removed with catheter intact. Patients home meds returned, complained that hospital does not carry her cancer related medications, explained that we do not carry all medications here. Discussed medication changes and need for follow up, unable to make appointment for her prior to discharge. Vitals stable and WNL. Denied pain or nausea, tolerating current diet well.
== END 2022-09-01 14:30 | disposition home or self-care (01) | DRG 389 ==
LOC: ED 14:30 → MEDSURG 15:36
PROVIDERS: Family Medicine; Admitting Provider Family Medicine; Emergency Provider Emergency Medicine Emergency Medical Services; PCP Internal Medicine; Visit Provider Family Medicine
DX: K56.600 Partial intestinal obstruction, unspecified as to cause (principal); I42.7 Cardiomyopathy due to drug and external agent; J44.1 Chronic obstructive pulmonary disease with (acute) exacerbation; I50.22 Chronic systolic (congestive) heart failure; E86.0 Dehydration; R82.71 Bacteriuria; B96.20 Unspecified Escherichia coli [E. coli] as the cause of diseases classified elsewhere; T50.Z95A Adverse effect of other vaccines and biological substances, initial encounter; C50.912 Malignant neoplasm of unspecified site of left female breast; Z17.0 Estrogen receptor positive status [ER+]; F32.A Depression, unspecified; F41.9 Anxiety disorder, unspecified; E03.9 Hypothyroidism, unspecified; F17.210 Nicotine dependence, cigarettes, uncomplicated; M81.0 Age-related osteoporosis without current pathological fracture; H91.90 Unspecified hearing loss, unspecified ear
CPT/HCPCS: 36415; 71045; 74018; 74177; 80048; 80053; 80076; 81001; 82330; 82803; 82977; 83605; 83690; 83735; 83880; 84443; 85025; 85027; 85610; 86140; 87086; 87186; 87493; 87635; 94640; 94761; 97161; 99285; A9270; C9113; G0378; J1170; J1885; J2060; J2405; J7030; J7120; J7626; Q9967